=== PATIENT | female | born 2000 | race Two or more races ===

== ENCOUNTER 2024-09-28 12:49 | Emergency (ER) | payer MEDICAID, SELFPAY ==
[2024-09-28 13:06] VITALS: BP 109/71; PULSE 85; RESP 16; TEMP 36.9; O2SAT 98; BMI 24.9
--- NOTE | 2024-09-28 13:09 | PD.EDRME ---
Rapid Medical Screening Exam RME Arrival date/time: 09/28/24 12:49 23-year-old female presents to the emergency department today complaints of nausea vomiting as well as abdominal pain Chief Complaint: Abdominal Pain Time Seen by Provider: 09/28/24 12:55 Vital signs: Vital Signs Temperature 98.5 F 09/28/24 13:06 Pulse Rate 85 09/28/24 13:06 Respiratory Rate 16 09/28/24 13:06 Blood Pressure 109/71 09/28/24 13:06 Pulse Oximetry (%) 98 09/28/24 13:06 Oxygen Delivery Method Room Air 09/28/24 13:06
[2024-09-28 13:37] LABS: Collection Type, Urine Clean Catch
[2024-09-28] MEDS: ONDANSETRON ODT 4 MG TABRAP PO (13:40)
[2024-09-28 13:52] LABS: HCG Qualitative,Urine Negative
[2024-09-28 13:53] LABS: Basophils % (Auto) 0 % (0-2.5); Eosinophils # (Auto) 0.1 Thou/mm3 (0.0-0.5); Eosinophils % (Auto) 1 % (0-10); Hematocrit 40.1 % (36.0-46.0); Hemoglobin 13.5 g/dL (12.0-16.0); Immature Granulocytes % (Auto) 0 % (0-0); Immature Granulocytes Auto 0.03 Thou/mm3 (0.00-0.00); Lymphocytes # (Auto) 1.2 Thou/mm3 (1.0-4.8); Lymphocytes % (Auto) 12 % (10-50); Mean Corpuscular HGB Conc 33.7 g/dl (31.0-37.0); Mean Corpuscular Hemoglobin 28.9 pg (25.0-35.0); Mean Corpuscular Volume 86 fL (80-100); Monocytes # (Auto) 0.5 Thou/mm3 (0.0-0.8); Monocytes % (Auto) 5 % (0-12); Neutrophils # (Auto) 8.1 Thou/mm3 (1.8-7.7); Neutrophils % (Auto) 82 % (37-80); Nucleated Red Blood Cell % 0 /100 WBC (0); Platelet Count 289 Thou/mm3 (140-440); RDW Standard Deviation 40.4 fL (36.4-46.3); Red Blood Count 4.67 Miln/mm3 (4.00-5.20); White Blood Count 9.9 Thou/mm3 (3.6-11.0)
[2024-09-28 14:00] LABS: Bilirubin,Urine Negative (Negative); Blood,Urine Negative (Negative); Color,Urine Yellow (Lt Yel-Yel); Culture Indicated,Urine Not Indicated; Glucose, Urine Negative (Negative); Ketones,Urine Negative (Negative); Leukocyte Esterase,Urine Negative (Negative); Nitrite,Urine Negative (Negative); Protein,Urine 1+ (Neg - Trace); RBC,Urine 9 /hpf (0-3); Specific Gravity,Urine 1.031 (1.001-1.035); Squamous Epithelial Cell,Urine 18 /hpf (0-5); WBC,Urine 1 /hpf (0-5)
[2024-09-28 14:04] LABS: Clarity,Urine Hazy (Clear/Hazy)
[2024-09-28 14:16] LABS: Alanine Aminotransferase 22 U/L (10-49); Albumin, Serum 4.6 gm/dL (3.5-5.0); Albumin/Globulin Ratio 1.6 (1.2-2.2); Alkaline Phosphatase 64 U/L (46-116); Anion Gap 5 (7-16); Aspartate Amino Transferase 26 U/L (0-34); BUN/Creatinine Ratio 10 Ratio (12-20); Bilirubin,Total 2.2 mg/dL (0.3-1.2); Blood Urea Nitrogen 8 mg/dL (9-23); Calcium 9.4 mg/dL (8.3-10.6); Calcium (Corrected) 9.4 mg/dL (8.5-10.1); Carbon Dioxide 28.3 mMol/L (20.0-31.0); Chloride 104 mMol/L (98-107); Creatinine (Component) 0.8 mg/dL (0.6-1.3); Estimated Creatinine Clearance 98.4 mL/min (>60); Globulin 2.8 gm/dL (2.3-3.5); Glucose 105 mg/dL (74-106); Lipase 32 U/L (12-53); Osmolality,Calculated 272 (275-295); Potassium 4.4 mMol/L (3.4-5.1); Sodium 137 mMol/L (136-145); Total Protein 7.4 gm/dL (5.7-8.2); eGFR > 60 See Note
--- NOTE | 2024-09-28 14:35 | XR_ITS ---
Examination: Abdomen sonogram, Limited Date and time of exam: September 28, 2024 1508 hours INDICATIONS: Generalized abdominal pain beginning 4 days ago Technique: Real-time cruz scale transabdominal sonographic images of the upper abdomen obtained. Findings: Normal gallbladder Normal common bile duct 0.3 cm Pancreatic head 2.1 cm Liver 14.8 cm no focal liver lesions Normal hepatopedal portal venous flow Patent IVC IMPRESSION: Normal gallbladder Liver normal size no focal liver lesions
--- NOTE | 2024-09-28 15:49 | EDNOTE_ITS ---
ED Abdominal Pain RME/HPI General Chief Complaint: Abdominal Pain Stated complaint: Abdominal pain X 3 days, vomiting Time seen by provider: 09/28/24 12:55 Arrival date/time: 09/28/24 12:49 RME / HPI RME / HPI narrative: 23-year-old female patient with no significant past medical history, came in for evaluation regarding diffuse abdominal pain. Patient has been having diffuse abdominal pain for 4 days, severity mild. Also complained of nausea but denies any vomiting. Denies any fever denies any diarrhea or constipation last bowel movement today. Denies any dysuria frequency or hematuria. No medication was taken prior travel. Related Data Previous Rx's ?Medication ?Instructions ?Recorded pantoprazole 40 mg tablet,delayed 40 mg PO QDAY #30 tabs 12/31/23 release (Protonix) dicyclomine 20 mg tablet 20 mg PO TID PRN abdominal pain 09/28/24 #30 tabs pantoprazole 40 mg tablet,delayed 40 mg PO QDAY #30 tabs 09/28/24 release (Protonix) Allergies Allergy/AdvReac Type Severity Reaction Status Date / Time No Known Allergies Allergy Unknown Verified 12/31/23 21:17 Review of Systems Review of Systems Narrative Review of Systems: Review of system reviewed and within normal limits except mentioned in HPI ED Exam Narrative Physical exam: VITAL SIGNS: Reviewed. GENERAL APPEARANCE: Alert and interactive, follows commands, no acute distress, HEAD AND FACE: Non-traumatic. ENT: PERRL, pink conjunctivitis, eyelid no trauma, Mucous membrane moist. NECK: Supple, nontender, no nuchal rigidity. CHEST: No tenderness, no crepitus, no paradoxical movement, no retractions. LUNGS: Clear, well ventilated, symmetric, no rales, no wheezing, no ronchi, no stridor, good breath sounds bilaterally. HEART: Regular rate, regular rhythm, no murmur, no gallops. ABDOMEN: Soft, positive bowel sounds, nondistended, no guarding, diffuse tenderness all quadrants severity mild, no rebound, no masses, RECTAL: Deferred. GENITAL: Deferred. NEUROLOGICAL: Gross motor function intact sensory function intact, Appropriate for age. MUSCULOSKELETAL: low back nontender, full range of motion. EXTREMITIES: Nontender, full range of motion. SKIN: Color pink, dry, no rash, no lacerations, no abrasions, no contusions. LYMPHATICS: Deferred. Course Quality Measures none Orders Category Date Time Status US gall bladder Stat Exams 09/28/24 14:35 Completed CBC Stat Lab 09/28/24 13:28 Completed Comprehensive Metabolic Panel Stat Lab 09/28/24 13:28 Completed HCG Qualitative,Urine Stat Lab 09/28/24 13:22 Completed Lipase Stat Lab 09/28/24 13:28 Completed UA, C/S IF [Urinalysis, C/S if Indicated] Stat Lab 09/28/24 13:22 Completed Ondansetron Odt [Zofran Odt] Med 09/28/24 13:09 Discontinued 4 mg PO X1 ONE Vital Signs Vital signs: Vital Signs Temperature 98.5 F 09/28/24 13:06 Pulse Rate 85 09/28/24 13:06 Respiratory Rate 16 09/28/24 13:06 Blood Pressure 109/71 09/28/24 13:06 Pulse Oximetry (%) 98 09/28/24 13:06 Oxygen Delivery Method Room Air 09/28/24 13:06 Abdominal Pain MDM MDM Narrative MDM Narrative:: 23-year-old female patient with no significant past medical history, came in for evaluation regarding diffuse abdominal pain. Patient has been having diffuse abdominal pain for 4 days, severity mild. Also complained of nausea but denies any vomiting. Denies any fever denies any diarrhea or constipation last bowel movement today. Denies any dysuria frequency or hematuria. No medication was taken prior travel. Patient's laboratory workup all came back unremarkable. Ultrasound of the abdomen came back unremarkable. Results discussed with the patient. Patient was advised to return to emergency room for reevaluation for persistence of the abdominal pain, if patient abdominal pain is getting worse, fever, and vomiting. Patient agrees with the plan. Patient data External records reviewed:: None Clinical information provided by:: none Social determinants that could affect healthcare access:: none Patient has the following chronic illnesses:: None How is presenting disease/condition affected by chronic disease/condition?: no chronic disease Evaluation data The following diagnostics were reviewed and interpreted by me:: lab results and radiology exam(s) Lab and/or radiology exams considered but not ordered:: None Interpretation Summary: Laboratory workup all came back unremarkable. Urinalysis no UTI patient is ultrasound of the upper abdomen came back unremarkable. Medications / Prescriptions Medications or Prescriptions considered but not ordered:: None Medication administrations:: Medication Administration History Discontinued Medications Ondansetron HCl (Ondansetron Odt 4 Mg Tabrap) 4 mg PO X1 ONE; Protocol Stop: 09/28/24 13:10 Last Admin: 09/28/24 13:40 Dose: 4 mg Documented By: Reji Consultations Consultation(s) initiated? (list below): No Diagnosis Differential diagnosis abdominal pain: abdominal pain, constipation, gastroenteritis and pancreatitis Most likely diagnosis given after review of the tests above:: Abdominal pain Admission Indicated Admission indicated?: not indicated Explain why admission is indicated or not indicated:: Patient is stable for discharge. Admission Request Was there a request for admission?: No Disposition Plan Disposition Plan: Discharge Discharge Attestation Discharge Attestation: The patient was given an opportunity to ask questions and understood the discharge instructions. Discharge instructions specifically effects, indications for sooner follow up or return to the emergency department, and the expected course of current diagnosis. Patient condition: Stable Discharge Plan Plan Patient Disposition: HOME (Self Care) Disposition Comment: stable Prescriptions/Referrals Prescriptions/Med Rec: New pantoprazole [Protonix] 40 mg tablet,delayed release (DR/EC) 40 mg PO QDAY Qty: 30 0RF dicyclomine 20 mg tablet 20 mg PO TID PRN (Reason: abdominal pain) Qty: 30 0RF No Action pantoprazole [Protonix] 40 mg tablet,delayed release (DR/EC) 40 mg PO QDAY Qty: 30 0RF Referrals: Wilfredo Calabrese MD [Primary Care Provider] - In 1 week Problem List Clinical Impression: Abdominal pain Patient/Caregiver Discharge Instructions Discharge Activity: activity as tolerated Education Materials: Abdominal Pain Additional Instructions: Thank you for the opportunity for serving you today. You are stable for discharged . You are advised to: Follow-up with your PCP in 1 to 2 days Return to ED for worsening of symptoms Increase oral fluids Take medication as prescribed Print Language: Estonian Stand Alone Forms: Elsa Award Info., Work/School Release, Patient Portal Info Letter PA/EVELIO Supervising Physician PA/EVELIO Supervising Physician: MD tania
== END 2024-09-28 16:21 | disposition home or self-care (01) ==
PROVIDERS: Nurse Practitioner Primary Care; Emergency Provider Emergency Medicine; PCP Student in an Organized Health Care Education/Training Program
DX: R10.84 Generalized abdominal pain (principal)
CPT/HCPCS: 36415; 76705; 80053; 81001; 81025; 83690; 85025; 99284; Q0162

== ENCOUNTER → 2025-06-15 | Outpatient (CLI) | payer MEDICAID, SELFPAY ==
--- NOTE | 2025-06-15 07:15 | XR_ITS ---
Examination: Pelvic ultrasound, transabdominal, complete Technique: Transabdominal ultrasound of the pelvis performed using grayscale imaging Date and time of exam: June 15, 2025, 0712 hours INDICATIONS: Ligament injury months FINDINGS: Uterus 8.7 cm in the medial side 1.2 cm No uterine mass or intrauterine gestation Right ovary 2.9 cm arterial flow small follicles, the largest 12 mm Left ovary 3.7 cm arterial flow IMPRESSION: Negative study
== END | disposition home or self-care (01) ==
LOC: CDIM 06:56
PROVIDERS: PCP Student in an Organized Health Care Education/Training Program; Referring Provider Student in an Organized Health Care Education/Training Program; Visit Provider Student in an Organized Health Care Education/Training Program
DX: N91.5 Oligomenorrhea, unspecified (principal)
CPT/HCPCS: 76856